=== PATIENT | male | born 1950 | race Caucasian/White ===

== ENCOUNTER 2018-05-11 09:31 | Inpatient (IN) ==
[2018-05-05 18:45] LABS: Basophils # (Auto) 0 K/mcL (0.0-0.3); Basophils % (Auto) 0.5 % (0.0-2.0); Eosinophils # (Auto) 0.1 K/mcL (0.0-0.7); Eosinophils % (Auto) 2.5 % (0.0-7.0); Granulocytes % (Auto) 66.6 % (38.0-78.0); Lymphocytes # (Auto) 1.4 K/mcL (1.5-4.8); Lymphocytes % (Auto) 23.9 % (15.5-49.0); Mean Cell Volume 89.7 fL (80.0-100.0); Mean Corpuscular HGB Conc 32.6 g/dL (31.0-36.0); Mean Corpuscular Hemoglobin 29.3 pg (26.0-34.0); Monocytes # (Auto) 0.4 K/mcL (0.1-0.9); Monocytes % (Auto) 6.5 % (1.0-12.0); Platelet Count 183 K/mcL (140-440); RBC 4.89 M/mcL (4.50-5.90); Red Cell Distribution Width 13.7 % (11.5-14.5)
[2018-05-05 19:15] LABS: Blood Urea Nitrogen 16 mg/dl (8-23)
[2018-05-05 19:16] LABS: Appearance,Urine CLEAR; Bilirubin,Urine NEG (NEG); Color,Urine YELLOW; Glucose,Urine (UA) NEGATIVE (NEG); Leukocyte Esterase,Urine NEG /uL (NEG); Protein,Urine NEG (NEG); Specific Gravity,Urine 1.021 (1.000-1.035); Urine Blood NEG mg/dL (<0.03); Urobilinogen,Urine NEG (NEG)
[~2018-05-11 09:31] MED LIST: 0.9 % SODIUM CHLORIDE 9 ML, KETOROLAC 30 MG, ROPIVACAINE HCL/PF 49.5 ML, EPINEPHrine 0.... IJ SCH; ACETAMINOPHEN 500 MG TABLET PO SCH; CELECOXIB 200 MG CAPSULE PO SCH; PREGABALIN 75 MG CAPSULE PO SCH; ceFAZolin 1 GM VIAL IV SCH; oxyCODONE 10 MG TAB.ER.12H PO SCH
[2018-05-11] MEDS ORDERED: GLYCOPYRROLATE 0.2 MG/ML VIAL IV ONE (13:30)
[2018-05-11] MEDS ORDERED: DEXAMETHASONE 10 MG/ML VIAL IV ONE (13:30)
[2018-05-11] MEDS ORDERED: TRANEXAMIC ACID 1,000 MG/10 ML VIAL IV ONE ×2 (13:30→13:33)
[2018-05-11] MEDS ORDERED: KETAMINE 100 MG/ML ML IV ONE (13:30)
[2018-05-11] MEDS ORDERED: LIDOCAINE HCL/PF 100 MG/5 ML SYRINGE IV ONE (13:30)
[2018-05-11] MEDS ORDERED: ROPIVACAINE HCL/PF 20 ML VIAL IJ ONE (13:30)
[2018-05-11] MEDS ORDERED: ONDANSETRON 4 MG/2 ML VIAL IV ONE (13:30)
[2018-05-11] MEDS ORDERED: PROPOFOL 200 MG/20 ML VIAL IV ONE (13:30)
[2018-05-11] MEDS ORDERED: MIDAZOLAM 5 MG/5 ML VIAL IV ONE (13:30)
[2018-05-11] MEDS ORDERED: FLEETS ADULT ENEMA PR PRN (13:33)
[2018-05-11] MEDS ORDERED: BENZOCAINE/MENTHOL 1 LOZENGE PO PRN ×2 (13:33→14:12)
[2018-05-11] MEDS ORDERED: MAGNESIUM HYDROXIDE 30 ML ORAL.SUSP PO PRN (13:33)
[2018-05-11] MEDS ORDERED: ONDANSETRON 4 MG/2 ML VIAL IV PRN ×2 (13:33→14:12)
[2018-05-11] MEDS ORDERED: POLYETHYLENE GLYCOL 3350 17 GM PACKET PO PRN (13:33)
[2018-05-11] MEDS ORDERED: BISACODYL 10 MG SUPP.RECT PR PRN (13:33)
[2018-05-11] MEDS ORDERED: ACETAMINOPHEN 325 MG TABLET PO PRN (13:33)
[2018-05-11] MEDS ORDERED: TEMAZEPAM 15 MG CAPSULE PO PRN (13:33)
[2018-05-11] MEDS ORDERED: GENTAMICIN SULFATE 800 MG/20 ML VIAL IR ONE (14:02)
[2018-05-11] MEDS ORDERED: IPRATROPIUM/ALBUTEROL 3 ML AMPUL.NEB NEB PRN (14:12)
[2018-05-11] MEDS ORDERED: FLUMAZENIL 0.1 MG/ML ML IV PRN (14:12)
[2018-05-11] MEDS ORDERED: LACTATED RINGERS 250 ML IV PRN (14:12)
[2018-05-11] MEDS ORDERED: MEPERIDINE 25 MG/ML SYRINGE IV PRN (14:12)
[2018-05-11] MEDS ORDERED: NALOXONE HCL 0.4 MG/ML VIAL IV PRN (14:12)
[2018-05-11] MEDS ORDERED: METHOCARBAMOL 1,000 MG/10 ML VIAL IV PRN (14:12)
[2018-05-11] MEDS ORDERED: fentaNYL 100 MCG/2 ML VIAL IV PRN (14:12)
[2018-05-11] MEDS ORDERED: LACTATED RINGERS 1,000 ML IV SCH (14:15)
--- NOTE | 2018-05-11 14:55 | Brief Operative Note ---
Date of procedure: 05/11/18 Pre-op diagnosis: left knee djd severe Post-op diagnosis: same Procedure: left knee tka with robotics Grafts/Implants: Yes Anesthesia: LAURA Surgeon: Aris Jordan Sales Assistant Institutional Sales: Mahamed Grady Estimated blood loss (cc): 50 Tourniquet Time (Minutes): 50 Specimens Removed/Pathology: none sent Condition: stable Disposition: PACU
[2018-05-11] MEDS ORDERED: ALBUTEROL SULFATE 1 PUFF INHALER INH PRN (14:58)
--- NOTE | 2018-05-11 15:18 | Operative Note ---
DATE OF OPERATION: 05/11/2018 PREOPERATIVE DIAGNOSIS: Left knee degenerative arthritis, severe. POSTOPERATIVE DIAGNOSIS: Left knee degenerative arthritis, severe. PROCEDURE: Left total knee arthroplasty. SURGEON: Aris Jordan MD FISHER NET: Mahamed Grady PA-C. ANESTHESIA: General LMA anesthesia. COMPLICATIONS: None. TOURNIQUET TIME: 50 minutes. ESTIMATED BLOOD LOSS: 50 mL IMPLANTS: Size 4 Sperry implants with a 9 mm deep dish poly and a 35 mm eccentric oval patella. All components were cemented. DESCRIPTION OF PROCEDURE: The patient was brought to the operating room and put to sleep with general LMA anesthesia. Once asleep, the patient had the left leg sterilely prepped and draped in the usual sterile fashion. A timeout was performed and a midline incision made. Dissection to the capsule and a mid vastus approach performed. This revealed severe arthritis in the medial compartment and patellofemoral joint. Intact PCL was present. At this point, we went ahead and proceeded with the total knee arthroplasty as scheduled. Two pins above and below the knee were placed. We registered the center of hip rotation, medial and lateral border portions of the ankle and intra-articular pins were registered 30 points on the femur, 30 points on the tibia. We then balanced the knee at 90 and 16 degrees, at 30 and 60 degrees. Once perfectly balanced throughout the arc of motion, we then brought the robot in and made our cuts. The tibia cut was made first and the femoral cuts were made. We removed the bony fragments and prepared the patella. It measured 24 mm in total thickness. This was cut to 14 mm and then a 35 mm oval patella was drilled for and we tested the range of motion. Full range of motion 0 degrees extension, still retaining at 3 degrees of varus as preoperatively planned. We irrigated thoroughly and cemented into place the above-mentioned sizes, removed any excess cement and kept the knee at 45 degrees. Tourniquet was deflated at 50 minutes and we closed the mid vastus approach with #1 Stratafix x2 sutures. Skin was closed with #1 Stratafix and adhesive closure. The patient tolerated this well. There were no complications. RBH:tami Job ID: [id number] Doc ID: [id number] Aris Jordan MD
--- NOTE | 2018-05-11 15:48 | XRay Report ---
CLINICAL INFORMATION: ITS.REASON: Post-Op Total Knee COMPARISON: None. FINDINGS: Total hip prostheses is anatomically aligned. No osseous abnormalities. Periarticular gas and physical exam as expected. IMPRESSION: Negative Interpreted and Authenticated by: Rahul Hill 05/11/18
[2018-05-11] MEDS: 0.9 % SODIUM CHLORIDE 10 ML SYRINGE IV SCH ×2 (16:08→22:38)
[2018-05-11] MEDS: 0.45 % SODIUM CHLORIDE 1,000 ML IV SCH (16:08)
[2018-05-11] MEDS: KETOROLAC 15 MG/ML VIAL IV SCH ×2 (17:45→23:01)
[2018-05-11] MEDS: HYDROcodone/APAP 10/325MG TABLET PO PRN (19:43)
[2018-05-11] MEDS ORDERED: OMEPRAZOLE 20 MG CAPSULE PO SCH (21:00)
[2018-05-11] MEDS ORDERED: SENNOSIDES 1 TABLET PO SCH (21:00)
[2018-05-11] MEDS ORDERED: traZODone HCL 150 MG TABLET PO SCH (21:00)
[2018-05-11] MEDS: HYDROmorphone 2 MG/ML VIAL IV PRN ×2 (21:06→22:13)
[2018-05-11] MEDS: BACLOFEN 10 MG TABLET PO SCH (21:54)
[2018-05-11] MEDS: DOCUSATE SODIUM 100 MG CAPSULE PO SCH (21:54)
[2018-05-11] MEDS: ASPIRIN 325 MG ENTERIC COATED TABLET PO SCH (21:54)
[2018-05-11] MEDS: buPROPion 150 MG TAB.SR.12H PO SCH (21:55)
[2018-05-11] MEDS: ceFAZolin 1 GM VIAL IV SCH (22:13)
[2018-05-12] MEDS: 0.45 % SODIUM CHLORIDE 1,000 ML IV SCH (02:27)
[2018-05-12] MEDS: HYDROcodone/APAP 10/325MG TABLET PO PRN ×3 (03:44→13:08)
[2018-05-12] MEDS: KETOROLAC 15 MG/ML VIAL IV SCH ×2 (05:28→13:08)
[2018-05-12] MEDS: ceFAZolin 1 GM VIAL IV SCH (05:29)
[2018-05-12] MEDS: 0.9 % SODIUM CHLORIDE 10 ML SYRINGE IV SCH ×2 (05:29→14:00)
--- NOTE | 2018-05-12 07:40 | Orthopedic Progress Note ---
Subjective Patient information: Note initiated : 05/12/18 at 7:39 am Service Date, if different from initiated Date: [] Patient: Lavon Watkins 68 y/o M admitted on 05/11/18 for Robotic Total Knee Arthroplasty (Left). Chief Complaint: [Pt is stable this morning on post operative day 1 without any significant concerns or complaints. Patients vital signs have remained stable. Patients dressing is dry and is grossly intact from a neurovascular and motor standpoint. Patients 10 point ROS is otherwise negative. ] Objective Vital signs: Vital Signs Temp Pulse Pulse Resp BP Pulse Ox 05/12/18 06:55 104 H 16 95 05/12/18 06:50 104 H 95 05/12/18 06:45 97.7 F 112 H 16 92/53 92 05/12/18 04:04 97.4 F 81 16 126/81 95 05/12/18 03:00 95 05/12/18 00:05 97.2 F 76 12 126/79 94 05/11/18 23:00 95 05/11/18 19:53 49 L 16 96 05/11/18 19:00 97 05/11/18 18:53 96.1 F L 67 14 136/90 97 05/11/18 17:54 154/85 100 05/11/18 17:26 149/83 99 05/11/18 16:54 137/79 99 05/11/18 16:39 139/82 100 05/11/18 16:24 142/84 98 05/11/18 16:09 144/87 98 05/11/18 16:06 96.9 F L 53 L 16 144/87 99 05/11/18 15:53 97.6 F 56 L 13 142/73 100 05/11/18 15:39 57 L 10 L 149/81 99 05/11/18 15:24 97.7 F 61 12 145/77 100 05/11/18 15:19 60 12 144/80 100 05/11/18 15:14 59 L 10 L 138/78 100 05/11/18 15:09 97.3 F 60 10 L 137/78 99 05/11/18 09:49 97.6 F 18 128/77 100 Intake and Output 05/11/18 05/12/18 05/12/18 21:59 05:59 13:59 Intake Total 1600 / 1600 900 / 900 1000 / 1000 Output Total 50 / 50 550 / 550 150 / 150 Balance 1550 / 1550 350 / 350 850 / 850 Intake: IV 1000 / 1000 Oral 900 / 900 IV - Manual Only 1600 / 1600 Output: Void Amount 550 / 550 150 / 150 Estimated Blood Loss 50 / 50 Other: Meal Dinner Percent of Meal Consumed 100% Feeding Ability Independent Urine Appearance Clear Clear Urine Color Straw Dark Yellow Urine Odor Normal Normal Weight 220 lb 8 oz Intake & Output: Intake & Output 05/11/18 05/12/18 05/12/18 21:59 05:59 13:59 Intake Total 1600 / 1600 900 / 900 1000 / 1000 Output Total 50 / 50 550 / 550 150 / 150 Balance 1550 / 1550 350 / 350 850 / 850 Weight 220 lb 8 oz Intake: IV 1000 / 1000 Oral 900 / 900 IV - Manual Only 1600 / 1600 Output: Void Amount 550 / 550 150 / 150 Estimated Blood Loss 50 / 50 Other: Meal Dinner Percent of Meal Consumed 100% Feeding Ability Independent Urine Appearance Clear Clear Urine Color Straw Dark Yellow Urine Odor Normal Normal Incision: Yes healing Incision clean and dry: Yes Dressing: Yes clean Weight bearing status: full Neurological exam IM: Yes motor sensory intact, Yes neurovascular intact Extremities exam IM: Yes Foot pink and warm, Yes neurovascular intact - Labs CBC & BMP: 05/12/18 04:00 05/05/18 14:28 Labs: Orthopedic Labs 05/05/18 14:28 PT 12.4 INR 0.9 APTT 31 05/12/18 05/05/18 04:00 14:28 Hgb 14.3 Hct 41.4 43.9 Assessment and Plan (1) Hx of total knee arthroplasty The patient has been educated regarding dressing care, Physical Therapy recommendations, home exercises, restrictions, and follow up appointments. The patient has had all necessary DME prescribed. The patient has remained relatively stable during their hospital course. Status: Acute
--- NOTE | 2018-05-12 07:42 | Discharge Summary ---
Ortho Discharge - TKA - Patient Instructions Diet: Regular Diet Activity: activity as tolerated, weight bearing as tolerated Total Knee Protocol: For Total Knee: Start ROM RUTH with stationary bike or rocking chair. Work on gaining full extension of knee. Posterior dislocation precautions provided. Hip abductor strengthening and gait training instructions provided. Apply Cryocuff as instructed. Dressing Care: May shower in 2 days Patient Education: Total Knee Replacement (DC) - Problem Maintenance (1) Hx of total knee arthroplasty Status: Acute - Follow Up Plan Follow Up Appointments: Mahamed Grady PA-C [[employer]] - 05/26/18 8:50 am Disposition: Home, Self-Care Prognosis: Good Rehab Potential: Good I certify that the patient requires SNF services: No Overall status at discharge: patient is progressing back to baseline - Orders For Discharge Prescriptions: Aspirin [Ecotrin] 325 mg PO BID #60 tab.ec Docusate Sodium [Colace] 100 mg PO BID #60 cap HYDROcodone/APAP 10/325MG [[place] 10-325Mg] 1 - 2 tab PO Q4HP PRN #75 tab PRN Reason: Pain Level 3-6
[2018-05-12] MEDS ORDERED: COLCHICINE 0.6 MG TABLET PO SCH (09:00)
[2018-05-12] MEDS ORDERED: HYDROCHLOROTHIAZIDE 25 MG TABLET PO SCH (09:00)
[2018-05-12] MEDS ORDERED: LOSARTAN 50 MG TABLET PO SCH (09:00)
[2018-05-12] MEDS ORDERED: LOSARTAN/HCTZ 100/25 TABLET PO SCH (09:00)
[2018-05-12] MEDS: ASPIRIN 325 MG ENTERIC COATED TABLET PO SCH (09:18)
[2018-05-12] MEDS: DOCUSATE SODIUM 100 MG CAPSULE PO SCH (09:18)
[2018-05-12] MEDS: BACLOFEN 10 MG TABLET PO SCH (09:19)
[2018-05-12] MEDS: buPROPion 150 MG TAB.SR.12H PO SCH (09:19)
== END 2018-05-12 16:20 | disposition home or self-care (01) ==
LOC: MEDSUR 09:31
PROVIDERS: ADMIT Orthopaedic Surgery; ATTEND Orthopaedic Surgery